=== PATIENT | female | born 1940 | race Caucasian/White ===

== ENCOUNTER → 2017-12-07 | Outpatient (CLI) | payer MEDICARE | LOC: RAD 12:25 | PROVIDERS: ATTEND Family Medicine | DX: R05 Cough (principal) | CPT/HCPCS: 71046 ==

== ENCOUNTER → 2018-01-05 | Outpatient (CLI) | payer MEDICARE ==
--- NOTE | 2018-01-05 14:12 | Diagnostic Imaging Report ---
EXAM: CT Chest WITHOUT contrast 01/05/2018 1:18 PM INDICATION: Cough for a week. COMPARISON: None TECHNIQUE: Chest was scanned utilizing a multidetector helical scanner from the lung apex through the level of the adrenal glands without administration of IV contrast. Absence of intravenous contrast decreases sensitivity for detection of lymphadenopathy and vascular pathology. Coronal and sagittal reformations were obtained. Routine protocol was performed. IV CONTRAST: None RADIATION DOSE: Total DLP: 64.39 mGy*cm Estimated effective dose: (DLP x 0.014 x size factor) mSv COMPLICATIONS: None FINDINGS: LINES/ TUBES: None. LUNGS AND AIRWAYS: Irregular biapical pleural-parenchymal opacities suggestive of scarring. 2 subcentimeter calcified nodules in the inferior posterior right upper lobe on image 54 series 3 consistent with granulomata. Granulomata are also present inferiorly and laterally in the right lower lobe on image 56. Tiny nodular densities in the medial right middle lobe also consistent with granulomata. Irregular lower parenchymal opacities in the lingula and left lung base suggestive of pleural parenchymal scarring. Calcified granulomata scattered throughout the left lower lobe. Airways are normal. PLEURA: No pleural effusion or pneumothorax. HEART AND MEDIASTINUM: The thyroid gland is normal. No mediastinal, hilar or axillary lymphadenopathy. The heart is normal in size.. There is no pericardial effusion. Mild atherosclerotic calcifications of the thoracic aorta without aneurysmal dilatation. UPPER ABDOMEN: Limited non-contrast views of the upper abdomen show a low-attenuation lesion in the posterior interpolar region of the left kidney measuring 1.4 cm. The spleen appears prominent, measuring at least 9.4 cm in length, however, completely included. The adrenal glands are normal. 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 SOFT TISSUES: Unremarkable. IMPRESSION: 1. Findings consistent with healed/remote granulomatous disease. 2. Irregular densities in the lingula and left lower lobe suggestive of pleural parenchymal scarring. Signed by: Dr. Cecilia Locke M.D. on 01/05/2018 2:08 PM
== END | disposition home or self-care (01) ==
LOC: CT 13:04
PROVIDERS: ATTEND Family Medicine
DX: J84.10 Pulmonary fibrosis, unspecified (principal)
CPT/HCPCS: 71250

== ENCOUNTER → 2018-05-16 | Outpatient (CLI) | payer MEDICARE ==
--- NOTE | 2018-05-16 12:01 | Diagnostic Imaging Report ---
EXAM: XR CHEST 2 VIEWS DATE: 05/16/2018 11:29 AM INDICATION: Dyspnea/cough COMPARISON: CT chest 01/05/2018, no report available FINDINGS: Lines and Tubes: None Heart and Mediastinum: No acute cardiomediastinal findings. Lungs and Pleura: Minimal biapical scarring. Blunting of the left costophrenic sulcus and streaky opacities left lung base. Bones and Soft Tissues: No acute findings. IMPRESSION: 1. Ill-defined opacities left lung base. While findings may represent atelectasis/scarring, superimposed infectious process not excluded. Given findings on prior CT, chest CT follow-up recommended after resolution of acute symptoms. Signed by: Dr. Yamil Bosch MD on 05/16/2018 11:57 AM
== END ==
LOC: RAD 11:22
PROVIDERS: ATTEND Family Medicine
DX: R05 Cough (principal); J40 Bronchitis, not specified as acute or chronic
CPT/HCPCS: 71046

== ENCOUNTER → 2018-06-06 | Outpatient (CLI) | payer MEDICARE ==
--- NOTE | 2018-06-06 13:36 | Diagnostic Imaging Report ---
EXAMINATION: PA and lateral views of the chest. COMPARISON: None CLINICAL HISTORY: Follow-up pneumonia DISCUSSION: Lines/tubes: None. Lungs: Stable linear scarring in the left lower lobe. Otherwise, the lungs are clear. Pleura: There is no pleural effusion or pneumothorax. Heart and mediastinum: The cardiomediastinal silhouette is normal. Bones and soft tissues: No acute bony abnormalities. IMPRESSION: No acute cardiopulmonary abnormalities. Signed by: Dr. Vick Hutton M.D. on 06/06/2018 1:33 PM
== END ==
LOC: RAD 12:41
PROVIDERS: ATTEND Internal Medicine Critical Care Medicine
DX: Z09 Encounter for follow-up examination after completed treatment for conditions other than malignant neoplasm (principal); Z87.01 Personal history of pneumonia (recurrent)
CPT/HCPCS: 71046

== ENCOUNTER → 2021-02-15 | Outpatient (CLI) | payer MEDICARE ==
[~2021-02-15] MED LIST: AMLODIPINE BESYL5 MG PO; CLOPIDOGREL75 MG PO; HYDRALAZINE HCL25 MG PO; HYDROCHLOROTHIA25 MG PO; LEVOTHYROXINE125 MCG PO; LOSARTAN POTAS100 MG PO; PANTOPRAZOLE SO40 MG PO; PAROXETINE HCL20 MG PO
== END ==
LOC: CT 13:42
PROVIDERS: ATTEND Family Medicine
DX: R91.8 Other nonspecific abnormal finding of lung field (principal)
CPT/HCPCS: 71250

== ENCOUNTER → 2021-07-14 | Outpatient (CLI) | payer MEDICARE | LOC: DX 12:54 | PROVIDERS: ATTEND Family Medicine | DX: Z13.820 Encounter for screening for osteoporosis (principal) | CPT/HCPCS: 77080 ==

== ENCOUNTER → 2022-05-17 | Outpatient (CLI) | payer MEDICARE | LOC: US 08:31 | PROVIDERS: ATTEND Family Medicine | DX: N28.1 Cyst of kidney, acquired (principal) | CPT/HCPCS: 76700 ==